=== PATIENT | female | born 1945 | race Caucasian/White ===

== ENCOUNTER → 2016-08-18 | Outpatient (CLI) | payer MEDICARE ==
[~2016-08-18] MED LIST: /WARF4TA PO; ALEV220C2 PO; ASPI81TA51 PO; LEVO25TA4 PO; METO12TA PO; MULTCAP PO; OMEPPOW18 PO; PAXI20TA3 PO
--- NOTE | 2016-08-18 16:24 | REP ---
Clinical: Follow up thoracic aortic aneurysm repair. Comparison: 07/25/2015. Findings: The patient is noted to be status post ascending thoracic aortic repair at the root of the aorta which previously measured up to 5.3 cm maximal diameter currently repaired and measuring 3.4 centimeters maximal diameter. The aortic arch and descending thoracic aorta demonstrate mild dilatation which is unchanged measuring up to 4.2 cm maximal diameter. Heart and pericardium are normal without cardiomegaly or pericardial effusion. Mediastinal lymph nodes are stable and nonspecific. Lung [place] demonstrate mild chronic bibasilar interstitial changes and bronchiectasis similar to prior examination. No acute consolidation, nodule or mass lesion. No pleural effusion/reaction or pneumothorax. Impression: 1. 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 2. Chronic bibasilar interstitial changes and bronchiectasis. 3. No acute mediastinal or pleuroparenchymal process. Signed by Case De Luna MD 08/18/2016 04:15 P
== END ==
LOC: M RAD 15:44
PROVIDERS: ATTEND Thoracic Surgery (Cardiothoracic Vascular Surgery)
DX: I71.4 Abdominal aortic aneurysm, without rupture (principal)

== ENCOUNTER → 2016-11-05 | Outpatient (CLI) | payer MEDICARE ==
--- NOTE | 2016-11-05 16:13 | REP ---
MAXILLOFACIAL CT WITHOUT CONTRAST: HISTORY: Chronic maxillary sinusitis. The sinuses are clear. The osteomeatal units are patent. The middle and inferior nasal turbinates are partially paradoxical. There is fernando bullosa of the right middle nasal turbinate. There is minimal deviation of the nasal septum to the left. A small spur is present arising from the left side of the nasal septum. The cribriform plate, medial scott of the orbits and optic canals are intact. The carotid canals for a segment of the posterolateral scott of the sphenoid sinus. IMPRESSION: There is no acute or chronic sinusitis. Signed by Víctor Frias MD 11/05/2016 04:17 P
== END ==
LOC: M RAD 15:08
PROVIDERS: ATTEND Otolaryngology
DX: J32.0 Chronic maxillary sinusitis (principal)

== ENCOUNTER → 2017-08-23 | Outpatient (CLI) | payer MEDICARE | LOC: M RAD 10:38 | DX: I71.2 Thoracic aortic aneurysm, without rupture (principal) | CPT/HCPCS: 71250 ==

== ENCOUNTER → 2018-05-10 | Outpatient (CLI) | payer MEDICARE | LOC: M RAD 08:47 | DX: I70.0 Atherosclerosis of aorta (principal); I71.2 Thoracic aortic aneurysm, without rupture; Z95.828 Presence of other vascular implants and grafts | CPT/HCPCS: 71250 ==

== ENCOUNTER → 2019-06-28 | Outpatient (CLI) | payer MEDICARE ==
[~2019-06-28] MED LIST changes: -/WARF4TA PO; +ASPI81TA26 PO; +ATOR1TAB21 PO; +COUM1TAB14 PO; +LEVO75TA4 PO; +MAGN400T2 PO; +METO-346 PO; -METO12TA PO; +NAPR-885 PO; +OMEP1CAP73 PO; +PARO20TA3 PO; +VITA100054 PO
--- NOTE | 2019-06-28 18:42 | REP ---
CT CHEST WITHOUT IV CONTRAST: CT chest performed without IV contrast. Sagittal and coronal reconstruction images are performed. COMPARISON: 10/17/2018. There is mild to moderate scattered atherosclerotic calcification of the thoracic aorta. Ascending thoracic aorta measures 3.9 cm in AP dimension, unchanged. Proximal aortic arch measures 4.2 cm, unchanged. Distal aortic arch is mildly dilated 4.6 cm, unchanged. Distal to that the descending thoracic aorta tapers gradually, at the mid thoracic level measures 4 cm in diameter, unchanged. The inferior aspect of the thoracic aorta measures about 3.4 cm, unchanged. Upper abdominal aorta is normal in caliber. Heart is not enlarged. No axillary adenopathy is seen. Multiple lymph nodes in the mediastinum are stable. Largest is about 1.1 cm in short axis in the aortopulmonic window. There is no pleural or pericardial effusion. There are diffuse interstitial fibrotic changes in the lungs bilaterally, unchanged. Large calcification in the posteromedial spleen is unchanged. There are degenerative changes of the spine. Multiple sternal wires are present. IMPRESSION: Stable diameter of the thoracic aorta when compared to the prior study of 10/17/2018. Electronically Signed by Galileo Tanner MD 06/30/2019 11:19 A
== END ==
LOC: M RAD 08:53
PROVIDERS: ATTEND Thoracic Surgery (Cardiothoracic Vascular Surgery)
DX: I71.2 Thoracic aortic aneurysm, without rupture (principal)

== ENCOUNTER → 2019-08-15 | Outpatient (REF) | payer MEDICARE ==
[~2019-08-15] MED LIST changes: +CVS2500C PO; +D 50CAP2 PO; +PARO40TA3 PO; +VITA500T40 PO; +ZONI50CA11 PO
== END ==
LOC: M LAB REF 17:34
PROVIDERS: ATTEND Internal Medicine
DX: R10.2 Pelvic and perineal pain (principal)

== ENCOUNTER → 2019-11-06 | Outpatient (REF) | payer MEDICARE | LOC: M LAB REF 12:39 | PROVIDERS: ATTEND Physician Assistant | DX: R30.0 Dysuria (principal) ==

== ENCOUNTER → 2019-11-17 | Outpatient (REF) | payer MEDICARE | LOC: M WUC 15:50 | PROVIDERS: ATTEND Nurse Practitioner Family | DX: R30.0 Dysuria (principal) ==

== ENCOUNTER → 2019-11-20 | Outpatient (CLI) | payer MEDICARE | LOC: M LABSMTC 09:40 | PROVIDERS: ATTEND Anesthesiology | DX: Z03.818 Encounter for observation for suspected exposure to other biological agents ruled out (principal); Z11.59 Encounter for screening for other viral diseases | CPT/HCPCS: C9803; U0003 ==

== ENCOUNTER → 2019-11-23 | Day surgery (SDC) | payer MEDICARE ==
[~2019-11-23] VITALS: Ht 170.2 cm; Wt 79.4 kg
[~2019-11-23] MED LIST changes: +LIDOCAINE 2% 100MG/5ML SDV (FOR ANES.) As Ordered ONE; +NS 1,000 ML IV ONE; +propofoL 200 MG/20 ML VIAL As Ordered ONE
== END | disposition home or self-care (01) ==
LOC: M OPP 08:38
PROVIDERS: ATTEND Surgery
DX: Z12.11 Encounter for screening for malignant neoplasm of colon (principal); Z53.8 Procedure and treatment not carried out for other reasons

== ENCOUNTER 2023-12-08 13:26 | Emergency (ER) | payer MEDICARE, OTHER ==
[~2023-12-08] VITALS: Ht 170.2 cm; Wt 66.3 kg
[~2023-12-08 13:26] MED LIST changes: -LIDOCAINE 2% 100MG/5ML SDV (FOR ANES.) As Ordered ONE; -NS 1,000 ML IV ONE; -propofoL 200 MG/20 ML VIAL As Ordered ONE
[2023-12-08] MEDS ORDERED: PRED5TA (13:51)
[2023-12-08] MEDS ORDERED: PRED5PAK (13:51)
[2023-12-08] MEDS: methocarbamoL 500 MG TAB PO ONE (16:28)
[2023-12-08] MEDS ORDERED: METH-1164 PO (16:28)
[2023-12-08] MEDS: KETOROLAC 60MG 2ML VIAL IM ONE (16:29)
[2023-12-08 16:41] VITALS: BP 141/81; TEMP 97; O2SAT 98
== END 2023-12-08 16:45 | disposition home or self-care (01) ==
LOC: M ED 13:26
DX: M16.0 Bilateral primary osteoarthritis of hip (principal); M51.37 Other intervertebral disc degeneration, lumbosacral region; M54.32 Sciatica, left side; I10 Essential (primary) hypertension; E78.5 Hyperlipidemia, unspecified; E03.9 Hypothyroidism, unspecified; Z90.89 Acquired absence of other organs; Z86.718 Personal history of other venous thrombosis and embolism; Z91.040 Latex allergy status; Z79.02 Long term (current) use of antithrombotics/antiplatelets; Z79.82 Long term (current) use of aspirin; Z79.899 Other long term (current) drug therapy; Z79.52 Long term (current) use of systemic steroids
CPT/HCPCS: 73502; 96372; 99283; J1885

== ENCOUNTER → 2024-03-14 | Outpatient (CLI) | payer OTHER ==
[~2024-03-14] MED LIST changes: +METH-1164 PO; +PRED5PAK; +PRED5TA
== END ==
LOC: M WHC 13:27
PROVIDERS: ATTEND Nurse Practitioner Family
DX: Z13.820 Encounter for screening for osteoporosis (principal); Z78.0 Asymptomatic menopausal state

== ENCOUNTER 2024-03-29 14:34 | Emergency (ER) | payer OTHER ==
[~2024-03-29] VITALS: Ht 162.6 cm; Wt 69.0 kg
[~2024-03-29 14:34] MED LIST changes: -PRED5TA; +PRED5TA PO
[2024-03-29 15:22] LABS: BASO % 0.2 % (0.0-1.0); EOS % 0.2 % (0.0-3.0); HEMATOCRIT 43.8 % (36.0-47.0); LYMPH # 1.3 10^3/uL (1.5-5.0); LYMPH % 10.3 % (24.0-44.0); MEAN CORPUSCULAR HEMOGLOBIN 30.2 pg (27.0-33.0); MEAN CORPUSCULAR VOLUME 94.6 fl (80.0-96.0); MONO # 0.8 10^3/uL (0.0-0.8); MONO % 6.6 % (2.0-8.0); NEUTROPHILS % 82.5 % (36.0-66.0); PLATELET COUNT, AUTOMATED 231 10^3/uL (150-450); RED BLOOD COUNT 4.63 10^6/uL (4.00-5.40); WHITE BLOOD COUNT 12.2 10^3/uL (4.0-10.0)
[2024-03-29 15:50] LABS: BLOOD UREA NITROGEN 21 MG/DL (9-23); CALCIUM LEVEL 9.8 MG/DL (8.3-10.6); CARBON DIOXIDE LEVEL 28 MMOL/L (20-31); CHLORIDE LEVEL 106 MMOL/L (98-107); CREATININE FOR GFR 0.75 MG/DL (0.55-1.30); GLOMERULAR FILTRATION RATE > 60.0 (>32); GLUCOSE, FASTING 101 MG/DL (74-106); POTASSIUM SERUM 4.6 MMOL/L (3.5-5.1); SODIUM LEVEL 139 MMOL/L (136-145)
[2024-03-29] MEDS ORDERED: ISOVUE-370 76% 100ML VIAL As Ordered ONE (16:44)
[2024-03-29 17:34] VITALS: TEMP 99.7
[2024-03-29] MEDS ORDERED: CHLO1TAB35 PO (18:12)
[2024-03-29] MEDS ORDERED: BENZ-18 PO (18:12)
[2024-03-29] MEDS ORDERED: ROSU10TA61 PO (18:12)
[2024-03-29] MEDS ORDERED: TUSS15SY2 PO (18:12)
[2024-03-29] MEDS ORDERED: HOME MED LIST COMPLETE! XX SCH (18:20)
[2024-03-29 18:45] VITALS: BP 132/60
[2024-03-29 18:49] VITALS: O2SAT 95
[2024-03-29] MEDS ORDERED: AZIT-12 PO (19:32)
[2024-03-29] MEDS: AZITHROMYCIN 250MG TABLET PO ONE (19:35)
== END 2024-03-29 19:41 | disposition home or self-care (01) ==
LOC: EDSEX 14:34 → EDBD 14:34 → M ED 14:34
DX: J20.9 Acute bronchitis, unspecified (principal); D73.89 Other diseases of spleen; I70.0 Atherosclerosis of aorta; I49.3 Ventricular premature depolarization; I10 Essential (primary) hypertension; F41.9 Anxiety disorder, unspecified; F32.9 Major depressive disorder, single episode, unspecified; M51.360 Other intervertebral disc degeneration, lumbar region with discogenic back pain only; E03.9 Hypothyroidism, unspecified; Z91.040 Latex allergy status; Z79.82 Long term (current) use of aspirin; Z79.1 Long term (current) use of non-steroidal anti-inflammatories (NSAID); Z79.899 Other long term (current) drug therapy; Z79.52 Long term (current) use of systemic steroids
CPT/HCPCS: 36415; 70498; 71045; 72110; 80048; 85025; 87486; 87581; 87633; 87798; 93005; 93041; 93975; 94760; 99285; Q9967

== ENCOUNTER → 2024-05-12 | Outpatient (CLI) | payer OTHER ==
[~2024-05-12] MED LIST changes: +AZIT-12 PO; +BENZ-18 PO; +CHLO1TAB35 PO; +ROSU10TA61 PO; +TUSS15SY2 PO
== END ==
LOC: M PLAIMG 10:51
PROVIDERS: ATTEND Physician Assistant Medical
DX: J32.8 Other chronic sinusitis (principal)

== ENCOUNTER → 2024-09-14 | Outpatient (CLI) | payer MEDICARE ==
[2024-09-14 13:26] LABS: BASO % 0.5 % (0.0-1.0); EOS # 0.1 10^3/uL (0.0-0.5); EOS % 1.2 % (0.0-3.0); HEMATOCRIT 46.7 % (36.0-47.0); HEMOGLOBIN 14.6 g/dl (12.0-15.5); LYMPH # 1.5 10^3/uL (1.5-5.0); LYMPH % 20.7 % (24.0-44.0); MEAN CORPUSCULAR HGB CONC 31.3 g/dl (32.0-36.5); MEAN CORPUSCULAR VOLUME 96.1 fl (80.0-96.0); MONO # 0.5 10^3/uL (0.0-0.8); MONO % 7.1 % (2.0-8.0); NEUTROPHILS # 5.1 10^3/uL (1.5-8.5); NEUTROPHILS % 70.4 % (36.0-66.0); PLATELET COUNT, AUTOMATED 209 10^3/uL (150-450); RED BLOOD COUNT 4.86 10^6/uL (4.00-5.40); WHITE BLOOD COUNT 7.3 10^3/uL (4.0-10.0)
[2024-09-14 14:02] LABS: THYROID STIMULATING HORMONE 4.468 uIU/ML (0.55-4.78)
[2024-09-14 14:10] LABS: FREE T4 0.8 NG/DL (0.89-1.76); TOTAL 25(OH) VITAMIN D 37.2 NG/ML (20.0-100.0)
[2024-09-14 14:23] LABS: ALBUMIN 3.3 G/DL (3.2-5.2); BILIRUBIN,TOTAL 0.4 MG/DL (0.3-1.2); CALCIUM LEVEL 9.6 MG/DL (8.3-10.6); CHOLESTEROL RISK RATIO 3.52 (<5); CREATININE FOR GFR 0.86 MG/DL (0.55-1.30); GLOMERULAR FILTRATION RATE 67.8 (>32); HDL CHOLESTEROL 46.3 MG/DL (>40); LDL CHOLESTEROL 77.7 MG/DL (<100); NON-HDL-C 116.7 MG/DL; POTASSIUM SERUM 4.6 MMOL/L (3.5-5.1); TOTAL PROTEIN 6.9 G/DL (5.7-8.2)
== END ==
LOC: M LAB 12:41
PROVIDERS: ATTEND Nurse Practitioner Family
DX: E78.2 Mixed hyperlipidemia (principal); I10 Essential (primary) hypertension; E55.9 Vitamin D deficiency, unspecified; E53.8 Deficiency of other specified B group vitamins

== ENCOUNTER → 2024-09-21 | Outpatient (CLI) | payer MEDICARE, OTHER ==
[2024-09-21 10:37] LABS: URIC ACID 5.3 MG/DL (3.1-7.8)
[2024-09-21 10:40] LABS: C REACTIVE PROTEIN QUANTITATIV 0.74 MG/DL (<1.0); RHEUMATOID FACTOR QUANT < 3.5 IU/ML (<14)
== END ==
LOC: M LAB 09:04
PROVIDERS: ATTEND Nurse Practitioner Family
DX: M25.50 Pain in unspecified joint (principal); G89.29 Other chronic pain

== ENCOUNTER 2024-09-25 11:46 | Emergency (ER) | payer MEDICARE ==
[~2024-09-25] VITALS: Ht 162.6 cm; Wt 69.9 kg
[2024-09-25 14:10] VITALS: TEMP 98.3
[2024-09-25 17:23] LABS: BASO % 0.4 % (0.0-1.0); EOS # 0.1 10^3/uL (0.0-0.5); EOS % 0.6 % (0.0-3.0); HEMATOCRIT 46.8 % (36.0-47.0); HEMOGLOBIN 15.1 g/dl (12.0-15.5); LYMPH # 1.7 10^3/uL (1.5-5.0); LYMPH % 19.7 % (24.0-44.0); MEAN CORPUSCULAR HEMOGLOBIN 29.7 pg (27.0-33.0); MEAN CORPUSCULAR HGB CONC 32.3 g/dl (32.0-36.5); MEAN CORPUSCULAR VOLUME 92.1 fl (80.0-96.0); MONO # 0.6 10^3/uL (0.0-0.8); MONO % 7.2 % (2.0-8.0); NEUTROPHILS # 6.2 10^3/uL (1.5-8.5); NEUTROPHILS % 71.7 % (36.0-66.0); PLATELET COUNT, AUTOMATED 202 10^3/uL (150-450); RED BLOOD COUNT 5.08 10^6/uL (4.00-5.40); WHITE BLOOD COUNT 8.6 10^3/uL (4.0-10.0)
[2024-09-25] MEDS: KETOROLAC 60MG 2ML VIAL IM ONE (17:23)
[2024-09-25 17:42] LABS: CALCIUM LEVEL 9.8 MG/DL (8.3-10.6); CREATININE FOR GFR 0.63 MG/DL (0.55-1.30); GLOMERULAR FILTRATION RATE 89.1 (>32); POTASSIUM SERUM 4.2 MMOL/L (3.5-5.1)
[2024-09-25 17:46] LABS: URIC ACID 5.6 MG/DL (3.1-7.8)
[2024-09-25 18:00] LABS: ERYTHROCYTE SEDIMENTATION RATE 29 mm/hr (0-30)
[2024-09-25 18:30] VITALS: BP 155/67; O2SAT 95
== END 2024-09-25 19:45 | disposition home or self-care (01) ==
LOC: M ED 11:46
DX: S83.412A Sprain of medial collateral ligament of left knee, initial encounter (principal); S93.432A Sprain of tibiofibular ligament of left ankle, initial encounter; X50.0XXA Overexertion from strenuous movement or load, initial encounter; M17.12 Unilateral primary osteoarthritis, left knee; M61.472 Other calcification of muscle, left ankle and foot; M85.872 Other specified disorders of bone density and structure, left ankle and foot; I10 Essential (primary) hypertension; M54.50 Low back pain, unspecified; E03.9 Hypothyroidism, unspecified; Z91.040 Latex allergy status; Y92.009 Unspecified place in unspecified non-institutional (private) residence as the place of occurrence of the external cause; Y93.89 Activity, other specified; Y99.9 Unspecified external cause status; Z79.82 Long term (current) use of aspirin; Z79.899 Other long term (current) drug therapy; Z79.1 Long term (current) use of non-steroidal anti-inflammatories (NSAID); Z79.52 Long term (current) use of systemic steroids
CPT/HCPCS: 73564; 73610; 73630; 80048; 84550; 85025; 85652; 86618; 93971; 96372; 99284; J1885

== ENCOUNTER → 2025-02-27 | Outpatient (CLI) | payer MEDICARE ==
[2025-02-27 10:41] LABS: BASO # 0.0 10^3/uL (0.0-0.2); BASO % 0.4 % (0.0-1.0); EOS # 0.1 10^3/uL (0.0-0.5); EOS % 1.6 % (0.0-3.0); LYMPH # 1.3 10^3/uL (1.5-5.0); LYMPH % 17.0 % (24.0-44.0); MONO # 0.5 10^3/uL (0.0-0.8); MONO % 7.0 % (2.0-8.0); NEUTROPHILS # 5.6 10^3/uL (1.5-8.5); NEUTROPHILS % 73.6 % (36.0-66.0); PLATELET COUNT, AUTOMATED 217 10^3/uL (150-450)
[2025-02-27 11:13] LABS: ALT/SGPT < 9 U/L (7.0-40); AST/SGOT 15 U/L (<34); CALCIUM LEVEL 9.3 MG/DL (8.3-10.6); CARBON DIOXIDE LEVEL 28 MMOL/L (20-31); CHLORIDE LEVEL 105 MMOL/L (98-107); CHOLESTEROL LEVEL 173 MG/DL (<200); CHOLESTEROL RISK RATIO 3.72 (<5); CREATININE FOR GFR 0.73 MG/DL (0.55-1.30); GLOMERULAR FILTRATION RATE 82.6 (>32); LDL CHOLESTEROL 101.3 MG/DL (<100); NON-HDL-C 126.5 MG/DL; POTASSIUM SERUM 4.3 MMOL/L (3.5-5.1); SODIUM LEVEL 140 MMOL/L (136-145); TRIGLYCERIDES LEVEL 126 MG/DL (<150)
[2025-02-27 11:15] LABS: FREE T4 0.89 NG/DL (0.89-1.76)
[2025-02-27 13:28] LABS: THYROID PEROXIDASE ANTIBODY 225 U/ML (<60.0)
[2025-02-27 13:34] LABS: THYROGLOBULIN ANTIBODY 53.0 U/ML (<60.0)
== END ==
LOC: M LAB 09:13
PROVIDERS: ATTEND Nurse Practitioner Family
DX: E78.2 Mixed hyperlipidemia (principal); E03.2 Hypothyroidism due to medicaments and other exogenous substances; H57.89 Other specified disorders of eye and adnexa

== ENCOUNTER → 2025-04-20 | Outpatient (CLI) | payer MEDICARE ==
[~2025-04-20] MED LIST changes: -ROSU10TA61 PO; +ROSU10TA90 PO
[2025-04-20 15:33] LABS: PLATELET COUNT, AUTOMATED 239 10^3/uL (150-450)
[2025-04-20 16:01] LABS: INR 0.95
== END ==
LOC: M LAB 14:28
PROVIDERS: ATTEND Physical Medicine & Rehabilitation
DX: Z01.818 Encounter for other preprocedural examination (principal)